=== PATIENT | female | born 1965 | race American Indian/Alaskan Native ===

== ENCOUNTER 2024-10-18 04:06 | Inpatient (IN) | payer BC ==
[~2024-10-18] VITALS: Ht 157.5 cm; Wt 66.2 kg
--- NOTE | 2024-10-18 04:49 | Physician Documentation ---
History of Present Illness ~ Chief Complaint: Knee Pain Stated Complaint: KNEE PAIN Time Seen by MD: 04:47 OK to notify your PCP?: Yes Primary Medical Doctor: [facility] Source: patient, RN/MD, EMS, RN notes reviewed, EMS notes reviewed, old records Mode of Arrival: EMS Exam Limitations: no limitations HPI THIS PATIENT WAS SEEN IN BED 1 This patient is a 59 y/o female who presents to ED with left knee pain after a fall. Per EMS report, patient fell off the ladder from her roof about 8 hours ago, and landed on both feet. She denies any head strike, LOC, and patient is not on blood thinners. Patient notes that she did take an Oxy at home prior to arrival that a friend gave her. She also states she has had a previous caclcanus fracture on her right foot which resulted from a similar mechanism of injury. Patient denies any other associated symptoms at this time. Patient denies any other alleviating or exacerbating factors. Medication Reconciliation Allergies: Coded Allergies: No Known Allergies (Unverified , 10/18/24) Past Medical History Past Medical History: No Pertinent History Past Surgical History: orthopedic surgeries Smoking Status: Never smoker Alcohol Use: None Drug Use: none Review of Systems All Other Systems at this time: Reviewed and Negative Musculoskeletal: Reports: pain Physical Exam Vital Signs: RN Vital Signs have been reviewed: Yes, Temperature: 98.2, Source: Oral, Heart Rate: 84, Respiratory Rate: 16, BP: 159/81, Pulse Oximetry: 98, Weight: 63.640 Physical Exam General: The patient is well developed, well nourished, nontoxic appearing and is in no acute distress. Skin: [place], warm and dry with no rashes. HEENT: Head was normocephalic and atraumatic. Eyes - pupils equal, round, reactive to light and accommodation. Extraocular movements were intact. Conjunctivae were nonicteric. Ears - bilateral tympanic membranes were normal. The mouth and oropharynx were clear with moist mucous membranes. There were no pharyngeal exudates or erythema. Neck: Supple and nontender. There was no jugular venous distention, lymphadenopathy, thyromegaly or masses. Chest: Clear to auscultation bilaterally without wheezes, rales or rhonchi. No accessory muscle use. No dullness to percussion. Heart: Rate regular and rhythmic. S1, S2. No murmurs. Palpation of the chest wall was normal. No rubs or thrills. Abdomen: Soft, nontender and nondistended. Positive bowel sounds. No guarding or rebound. No hepatosplenomegaly or palpable masses. Extremities: LLE: Patient's left knee is swollen, warm, and tender to touch. Limited ROM secondary to pain. Otherwise no cyanosis, clubbing or edema. The patient moves all other extremities. Pulses were equal and symmetric. Neurologic: Cranial nerves II-XII were intact. Sensation was intact to light touch throughout. Motor strength was 5/5 in all four extremities. Deep tendon reflexes were intact in both upper and lower extremities. Psychologic: The patient was oriented to person, place and time. The patient demonstrated appropriate judgement and insight. Procedures Splinting Hand-Made Type: orthoglass Splint: Long Leg Splint Pre-Proc Neuro Vasc Exam: normal Post-Proc Neuro Vasc Exam: normal Splint Placed By: sanding machine tender Tolerated Procedure Well?: yes, no complications Progress Progress Note 0510: Case presented to on-call orthopedist, Dr. Crawford for consultation. He is requesting 3D reconstruction CT of knee. Results/Orders Reviewed/noted all lab results: Yes Results/Orders Orders - MATTEO NIELSEN MD Knee Limited (Ap/Lat) (10/18/24 04:19) Urinalysis, Cult If Indicated (10/18/24 04:57) Chest,Single View (10/18/24 04:57) Echocardiogram (10/18/24 04:57) Dextrose 5%-1/2 Normal Saline (Dextrose (10/18/24 05:00) Monitor (10/18/24 04:57) Oxygen (10/18/24 04:57) Saline Lock (10/18/24 04:57) Electrocardiogram (10/18/24 04:57) Ortho Orders (10/18/24 05:00) Ct Recon Extremity (10/18/24 05:04) Type And Screen (10/18/24 05:42) Ct Lower Extremity (10/18/24 05:43) Pt Inr (10/18/24 06:25) PTT (10/18/24 06:25) Page Hospitalist (10/18/24 06:37) Liver Panel (10/18/24 06:37) Completed Orders - MATTEO NIELSEN MD Knee Limited (Ap/Lat) (10/18/24 04:19) Cbc/Diff (10/18/24 04:57) MG (10/18/24 04:57) Chest,Single View (10/18/24 04:57) Electrocardiogram (10/18/24 04:57) BMP (10/18/24 04:57) Hydromorphone 1 Mg/Ml/Pf (Dilaudid Inj.) (10/18/24 05:30) Hydromorphone 1 Mg/Ml/Pf (Dilaudid Inj.) (10/18/24 05:30) Ct Lower Extremity (10/18/24 05:43) Normal Saline 1000ml (Sodium Chloride 10 (10/18/24 06:40) Medications Received in ER Medications (Trade) Dose Ordered Sig/Pantera Route PRN Reason Start Time Stop Time Status Last Admin Dose Admin Dextrose/Sodium Chloride 1,000 ml @ 150 mls/hr Q6H40M ONCE IV 10/18/24 05:00 10/18/24 11:39 10/18/24 05:46 150 MLS/HR (Dilaudid inj.) 1 mg ONCE ONCE IV 10/18/24 05:30 10/18/24 05:31 DC 10/18/24 05:32 1 MG Vital Signs 10/18/24 10/18/24 10/18/24 04:09 04:44 05:32 Temp 98.2 Pulse 97 84 Resp 18 16 16 B/P (MAP) 136/76 159/81 (107) Pulse Ox 100 98 Laboratory Tests Test 10/18/24 05:25 White Blood Count 11.7 H Red Blood Count 4.07 L Hemoglobin 12.8 Hematocrit 37.7 Mean Corpuscular Volume 92.7 Mean Corpuscular Hemoglobin 31.5 H Mean Corpuscular Hemoglobin Concent 34.0 Red Cell Distribution Width 13.2 Platelet Count 208 Mean Platelet Volume 8.9 Neutrophils (%) (Auto) 91.6 H Lymphocytes (%) (Auto) 5.1 L Monocytes (%) (Auto) 3.3 Eosinophils (%) (Auto) 0 Basophils (%) (Auto) 0 Neutrophils # (Auto) 10.7 H Lymphocytes # (Auto) 0.6 L Monocytes # (Auto) 0.4 Eosinophils # (Auto) 0.0 Basophils # (Auto) 0.0 CBC Comment Coagulation Comments Sodium Level 136 Potassium Level 3.8 Chloride Level 102 Carbon Dioxide Level 26.9 Anion Gap 7 L Blood Urea Nitrogen 15 Creatinine 0.71 Estimated GFR/1.73 m2 84 BUN/Creatinine Ratio 21.1 H Glucose Level 130 H Calcium Level 9.3 Magnesium Level 2.0 Albumin 3.9 Chemistry Comments Re-Evaluation Re-Evaluation : Re-Evaluation: Improved Progress Patient was seen and examined. Patient was given reassurance. Patient was complaining of severe knee pain had impacted tibial plateau unstable fracture living alone requiring pain management and [place]. Preoperative workup was obtained. Patient has slight leukocytosis of 11.7 with 91 neutrophils. Thought to be more of a stress reaction she has no cough fevers chills dysuria frequency or any concerns for infection. She has a mechanical injury on a roof. Patient's chemistry was within normal limits. Case was discussed with the hosp italist at 7:10 a.m. who kindly agreed to admit the patient for further workup and care.Dr Quan. Ortho requested CT. Splint was placed on the patient to immobilize the knee. Pain meds were given. Her initial workup was reassuring echocardiogram is pending for the morning typed and screen as well for possible surgery. Patient received Dilaudid. Patient is doing much better at this time. She was placed on a mds rn as well. Continuous mds rn interpretation shows normal sinus rhythm heart rate 80s, no ectopy, normal, my interpretation. Pulse oximetry monitor interpretation shows normal oxygenation at 99% room air, normal, my interpretation. 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 Matteo Nielsen Measurements Intervals [place] Rate: 86 P: 67 [place]: 180 QRS: -2 QRSD: 88 T: 25 QT: 358 QTc: 429 Interpretive Statements Sinus rhythm Probable left atrial enlargement Low voltage, precordial leads RSR' in V1 or V2, right VCD or RVH Borderline T abnormalities, anterior leads Electronically Signed On 10-18-2024 5:24:[address] Matteo Nielsen Please click the below link to view image of tracing. EKG Date and Time:10/18/24 0506 Electronically Signed by: MATTEO NIELSEN MD Date and Time: 10/18/24523 NO PRIMARY CARE PROVIDER~ cc: ~ Bone/Soft Tissue X-Ray (Ext.) : Interpreted By: radiologist, both Additional Comment Patient: TATO GREEN Medical Record: [id number] [facility] : 1965, Age: 59 Sex: Female Location: ER Patient Status: REG ER Service Date/Time: 10/18/24/ 0419 Ordering Physician: MATTEO NIELSEN MD Exam: KNEE LIMITED (AP/LAT) CLINICAL INDICATION: FALL TECHNIQUE: DI KNEE LIMITED (AP/LAT) Comparison: None FINDINGS/IMPRESSION: : Severely depressed and displaced comminuted fracture of the lateral tibial plat eau. Moderate joint effusion consistent with hemarthrosis. Electronically Signed by:HAROLDO KENNEDY MD Date & Time: 06/29/25 0510 Dictated by: HAROLDO KENNEDY MD Dictation date and time: 10/18/24 0510 Primary Care Provider: NO PRIMARY CARE PROVIDER cc: MATTEO NIELSEN MD ~ IMAGES REVIEWED BY EDMD DR. NIELSEN WHO AGREES WITH ABOVE FINDINGS Medical Decision Making Additional info obtained from: old records Knee Diff Dx:Considerations: Include: Abrasion, Arthritis, Contusion, DJD, Fracture-femur, Fracture-fibula, Fracture-patella, Fracture-tibia, Meniscus injury, Neurovascular injury, Sprain, Sprain-MCL, Sprain-LCL, Sprain-ACL, Spra in-PCL, Other Departure Time of Disposition: 04:57 Disposition: 09 ADMITTED INPATIENT Admitted to Inpatient Unit: yes, to hospitalist Admission Level of Care: Ortho Impression: Primary Impression: Tibial plateau fracture, left Qualified Codes: S82.142A - Displaced bicondylar fracture of left tibia, initial encounter for closed fracture Condition: Guarded Referrals: NO PRIMARY CARE PROVIDER (PCP) Education Educated: Patient Educated regarding: diagnosis Signature Scribe Signature: no scribe. Attestation: The note accurately reflects work and decisions made by me.Matteo Nielsen MD 10/18/24 04:49 MATTEO NIELSEN MD Oct 18, 2024 04:49
--- NOTE | 2024-10-18 05:08 | ELECTROCARDIOGRAPH REPORT ---
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 Telma Musa Measurements Intervals [place] Rate: 86 P: 67 [place]: 180 QRS: -2 QRSD: 88 T: 25 QT: 358 QTc: 429 Interpretive Statements Sinus rhythm Probable left atrial enlargement Low voltage, precordial leads RSR' in V1 or V2, right VCD or RVH Borderline T abnormalities, anterior leads Electronically Signed On 10-18-2024 5:24:[address] Telma Musa Please click the below link to view image of tracing.
--- NOTE | 2024-10-18 05:12 | RADIOLOGY REPORT ---
CLINICAL INDICATION: FALL TECHNIQUE: DI KNEE LIMITED (AP/LAT) Comparison: None FINDINGS/IMPRESSION: : Severely depressed and displaced comminuted fracture of the lateral tibial plateau. Moderate joint effusion consistent with hemarthrosis.
[2024-10-18 05:48] LABS: MEAN PLATELET VOLUME 8.9 FL (7.4-10.4); RED CELL DISTRIBUTION WIDTH 13.2 % (11.5-14.5)
[2024-10-18 05:55] LABS: CREATININE 0.71 MG/DL (0.40-0.90); TOTAL CARBON DIOXIDE 26.9 MMOL/L (24-32); eCRCL 67 ML/MIN; eGFR 84 ML/MIN
--- NOTE | 2024-10-18 06:01 | RADIOLOGY REPORT ---
CHEST RADIOGRAPH Indication: CHEST PAIN Technique: Single frontal view of the chest was obtained COMPARISON: None FINDINGS: Lines and Tubes: None Lungs: Clear Pleura: No effusion. No pneumothorax. Cardiomediastinal contours: Unremarkable Bones: Unremarkable IMPRESSION: 1. No acute disease.
--- NOTE | 2024-10-18 07:03 | RADIOLOGY REPORT ---
INDICATION: fall COMPARISON: None TECHNIQUE: CT of the left knee was performed without contrast. Volume transverse images were obtained and reconstructed in multiple planes using bone and soft tissue algorithms. Radiation Dose Information: CT Dose: CTDI volume is 14.36 mGy. Dose-length product is 355.4 mGy*cm FINDINGS: Severely displaced and depressed comminuted lateral tibial plateau fracture involving primarily the p osterior portion of the plateau. The fracture margin extends to and involves the tibial spines. Lipohemarthrosis and Moderate soft tissue swelling and edema. IMPRESSION: 1. Severely displaced and depressed comminuted posterior lateral tibial plateau fracture with associa olga lidia lipohemarthrosis. 2. All CT scans at this medical facility are performed using dose modulation techniques as appropriat e to a performed exam including the following: Automated exposure control was utilized; adjustment of the MA and/or KV according to patient size; and use of iterative reconstruction technique.
[2024-10-18] MEDS ORDERED: magnesium sulf-water 4G/100mL 100 ML IV PRN (07:10)
[2024-10-18] MEDS ORDERED: magnesium Cl slow-release 64mg tablet PO PRN (07:10)
[2024-10-18] MEDS ORDERED: ondansetron/PF 4mg/2ml inj IV PRN (07:10)
[2024-10-18] MEDS ORDERED: potassium Cl 40MEQ/1/2NS 520ml 520 ML IV PRN (07:10)
[2024-10-18] MEDS ORDERED: potassium Cl 20 mEq SR tablet PO PRN ×2 (07:10)
[2024-10-18] MEDS ORDERED: magnesium sulf-water 2g/50mL 50 ML IV PRN (07:10)
[2024-10-18] MEDS: normal saline 1000ML IV soln IVB ONE (07:18)
[2024-10-18] MEDS: normal saline 1000ml 1,000 ML IV SCH (07:18)
[2024-10-18] MEDS: heparin, porcine 5000 units/ml vial SQ SCH (08:00)
[2024-10-18 08:18] LABS: APTT 25 SECONDS (22-32); INR 1.0 INR
[2024-10-18] MEDS ORDERED: NO HOME MEDS (09:55)
[2024-10-18 10:00] VITALS: BP 137/88; PULSE 97; RESP 14; TEMP 97.2; O2SAT 98
--- NOTE | 2024-10-18 12:30 | CONSULTATION REPORT ---
History of Present Illness Providers to CC ~ Reason for Admit\Admit Dx: left knee fracture Refering MD: Dr Prescott History of Present Illness The patient is a 59-year-old woman who fell off a ladder yesterday injuring her left leg. X-rays showed she had a lateral tibial plateau fracture. She was admitted for pain control and surgical intervention. Allergies: Coded Allergies: No Known Allergies (Unverified , 10/18/24) Home Medications Home Medications Active Reported No Home Medications (Home Med List) Each Physical Exam Last Vital Signs Recorded: Temperature: 98.2, Source: Oral, Heart Rate: 84, Respiratory Rate: 16, BP: 159/81, Pulse Oximetry: 98, Weight: 63.640 General Appearance: alert, no apparent distress EENT: PERRL/EOMI Neck: normal inspection Respiratory: lungs clear Extremities Moderate swelling about the left knee area the leg is in an Albino wrap and a posterior splint. She is moving her toes well Results Results/Orders Results/Orders X-rays and CT showed an intact medial plateau but a comminuted and significantly depressed lateral tibial plateau fracture about the knee Diagram Lab Result Diagram: 10/18/24 0525 10/18/24 0525 Assessment/Plan Problems/Diagnosis: (1) Tibial plateau fracture, left Additional Plan The splint that is currently on the leg is inadequate tonight ordered that to be replaced by a knee immobilizer. We will continue swelling control and a significant ice use. Planned surgery for tomorrow unless his swelling is too significant. I discussed with the patient the nature of her injury the need for surgery. I also discussed with the that it is a very bad injury and she is pretty going to have long-term effects such as posttraumatic arthritis later in life. Our attempt at this time be due restore the lateral articular surface and secured with the lateral plate. She understands and agrees to proceed. Surgery likely done with the next 24 hours. Problem Qualifiers (1) Tibial plateau fracture, left: Qualified Codes: S82.142A - Displaced bicondylar fracture of left tibia, initial encounter for closed fracture CANDIS BROWN Jr., MD Oct 18, 2024 12:30
[2024-10-18] MEDS: HYDROmorphone inj. 0.5 MG/0.5 ML DISP.SYRIN IV PRN (14:21)
[2024-10-18 18:00] VITALS: BP 169/93; PULSE 60; RESP 19; TEMP 97.3; O2SAT 100
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
--- NOTE | 2024-10-18 19:09 | CARDIOLOGY REPORT ---
APPROVED REPORT EXAM: Comprehensive 2D, Doppler, and color-flow Echocardiogram. 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 158.6 cm/s AoV VTI 26.9 cm AO Peak GR. 10.1 mmHg AO Mean GR. 5 mmHg LVOT VTI 19.03 cm LVOT Peak Narinder. 138.3 cm/s KP(VTI)/BSA 2.04 cm2/m2 KP (VTI) 2.04 cm2 Mitral Valve MV Peak Gr. 4 mmHg MV PHT 56 ms MVA (PHT) 3.93 cm2 MV VMax99.1 cm/s Tricuspid Valve TR P. Velocity 237 cm/s RAP ESTIMATE 10 mmHg TR Peak Gr. 22 mmHg RVSP 32 mmHg LEFT VENTRICLE Normal LV size and wall thickness. Overall systolic function is normal. LVEF is 65%. RIGHT VENTRICLE RV is normal size and function. Elevated right heart pressures as noted above. ATRIA The left atrium size is normal. AORTIC VALVE Trileaflet AV appears mildly sclerotic without stenosis. No insufficiency. MITRAL VALVE Mild MV annular calcification without stenosis. Trace regurgitation. TRICUSPID VALVE TV appears structurally normal with trace regurgitation. PULMONIC VALVE Normal pericardium. No effusion. GREAT VESSELS The aortic root is normal in size. IVC is not well visualized. PERICARDIUM Normal pericardium. No effusion. Other Information Study Quality: Adequate, but patient uncooperative
[2024-10-18 20:00] VITALS: RESP 19; O2SAT 100
[2024-10-18 21:32] LABS: LEUKOCYTE ESTERASE ,URINE NEGATIVE (Neg); NITRITES, URINE NEGATIVE (Neg); OCCULT BLOOD,URINE LARGE (Neg)
[2024-10-18 21:36] LABS: UA COLLECTION TYPE CLN CATCH MIDSTREAM
[2024-10-18 21:38] LABS: SQUAMOUS EPITHELIAL CELL,UR FEW /LPF (FEW)
[2024-10-18 21:48] LABS: URINE AMPHETAMINE SCREEN NEGATIVE (Neg); URINE BARBITUATE SCREEN NEGATIVE (Neg); URINE BENZODIAZEPINES SCREEN NEGATIVE (Neg); URINE CANNABINOID SCREEN NEGATIVE (Neg); URINE COCAINE SCREEN NEGATIVE (Neg); URINE METHADONE SCREEN NEGATIVE (Neg); URINE OPIATE SCREEN POSITIVE (Neg); URINE PHENCYCLIDINE SCREEN NEGATIVE (Neg)
[2024-10-18 22:00] VITALS: BP 133/73; PULSE 82; RESP 14; TEMP 97.1; O2SAT 92
[2024-10-19] VITALS (25 sets, daily range): BP systolic 96–169; BP diastolic 46–93; PULSE 60–114; RESP 10–20; TEMP 97.5–98.4; O2SAT 93–100
[2024-10-19] MEDS: HYDROcodone/acetaminophen 10/325mg tab PO PRN (04:38)
[2024-10-19 05:30] LABS: MEAN PLATELET VOLUME 9.4 FL (7.4-10.4); RED CELL DISTRIBUTION WIDTH 13.2 % (11.5-14.5)
[2024-10-19 06:10] LABS: CREATININE 0.47 MG/DL (0.40-0.90); TOTAL CARBON DIOXIDE 26.4 MMOL/L (24-32); eCRCL 101 ML/MIN; eGFR > 90 ML/MIN
[2024-10-19] MEDS ORDERED: BUPIVAcaine/PF 2.5 mg/ml (0.25%) 30ml vial ONE (12:56)
[2024-10-19] MEDS ORDERED: ondansetron/PF 4mg/2ml inj IV PRN (13:45)
[2024-10-19] MEDS ORDERED: morphine 4 MG/ML inj SYRINge IV PRN (13:45)
[2024-10-19] MEDS ORDERED: enalaprilat 1.25mg/ml 2ml vial IV PRN (13:45)
[2024-10-19] MEDS ORDERED: meperidine/PF 25mg/ml syringe IV PRN ×3 (13:45)
[2024-10-19] MEDS ORDERED: labetalol 20mg/4ml (5mg/ml) syringe IV PRN (13:45)
--- NOTE | 2024-10-19 13:57 | PROGRESS NOTE- Residence ---
Progress Note - Resident Providers to CC Resident Creating Document: RHEA MADISON RES ~ Antibiotic Timeout Antibiotic Ordered?: No Subjective Patient seen and examined at bedside. No acute overnight events noted. Resting in bed, denies pain, states she cannot move her leg. Leg wrapped in knee immobilizer. Scheduled to be taken for surgery this afternoon likely at 2 pm. Objective Vital Signs Date Time Temp Pulse Resp B/P (MAP) Pulse Ox O2 Delivery O2 Flow Rate FiO2 10/19/24 12:55 78 16 98 10/19/24 11:05 97.8 130/67 (88) 10/18/24 22:00 Room Air Result Diagram: 10/19/2442610/19/24426 General: Awake and Alert, no acute distress. HEENT: Conjunctiva pink, Sclera clear, Mucus Membranes moist. Neck: Supple without masses and tenderness. Resp: Unlabored. Equal breath sounds bilaterally. Heart: Regular rhythm, normal S1 and S2, no rub, murmur or gallop. Abdomen: Soft and non tender no organomegaly. Normal bowel sounds x4 quadrant normoactive. No guarding or rigidity. Extremities: Left lower extremity knee immobilizer in place. Left lower extremity edema present. No cyanosis or clubbing. CREW LEADER GLUING: No gross motor or sensory abnormalities. Skin: Warm and Dry. Coagulation Studies Laboratory Tests Test 10/18/24 07:56 Prothrombin Time 10.6 SECONDS (9.0-12.0) INR International Normalized Ratio 1.0 INR Activated Partial Thromboplast Time 25 SECONDS (22-32) Coagulation Comments Assessment Assessment 59 year old female presented to the ED with left knee pain after a mechanical fall. Plan Plan Mechanical fall Left sided Severely displaced and depressed comminuted posterior lateral tibial plateau fracture Scheduled for surgery with Dr. Crawford this afternoon Vitals stable Fluid resuscitation NS at 70 mL/hour Pain medications p.r.n. We will follow up post surgery PT eval and treat Code Status: Full code DVT prophylaxis: Heparin Analgesia/sedation: Morphine/[place] Line/tube: PIV GI prophylaxis: None Nutrition: NPO until surgery, Prognosis: Guarded Disposition: Continue medical management. Rhea Madison MD. IM Resident PGY-2 Date of Service: Oct 19, 2024 Billing Provider: NANCY SANCHEZ MD Common Visit Codes: [id number] INP/OBS CARE(HIGH) RHEA MADISON, RES Oct 19, 2024 13:57 NANCY SANCHEZ MD Oct 19, 2024 16:52
[2024-10-19] MEDS ORDERED: midazolam 1 mg/ML 2ml injection ONE (14:03)
[2024-10-19] MEDS ORDERED: fentaNYL /PF 50mcg/ml 5ml ampule ONE (14:04)
[2024-10-19] MEDS ORDERED: propofol inj 20 ML IV ONE ×2 (14:07→14:09)
[2024-10-19] MEDS ORDERED: dexamethasone sod phosphate 4mg/ml inj. ONE (14:08)
[2024-10-19] MEDS ORDERED: ROPIVAcaine 0.5% (5mg/ml) 30ml vial ONE (14:08)
[2024-10-19] MEDS ORDERED: LIDOcaine 2% (20mg/ml) 5ml vial ONE (14:09)
[2024-10-19] MEDS: ringers solution, lacted 1,000 ML IV SCH (14:16)
[2024-10-19] MEDS ORDERED: BUPIVAcaine/PF 7.5mg/ml (0.75%) 10ml vial ONE (14:31)
--- NOTE | 2024-10-19 15:00 | ANESTHESIA RECORDS ---
Nerve Block Providers to ~ Diagnosis: Nerve Block requested by: CANDIS BROWN Jr., MD Neuraxial/Peripheral Nerve Block requested for Post-operative analgesia by Jose marshall DIAGNOSIS: Post-operative pain. (Body Area) Shoulder: [ ] Arm: [ ] Hand: [ ] Hip: [ ] Knee: [ Left ] Ankle: [ ] Foot: [ ] Leg: [ Left ] Abdomen: [ ] Other: [ ] Post-operative pain expected to be/is inadequately managed by oral or IV medicines. Regional anesthetic expected to facilitate rehabilitation and/or discharge from facility. Other: [ ] Time out Done?: Yes Time of Time out: 14:15 Procedure Details: PROCEDURE DETAILS: Risks, benefits and alternatives explained Informed consent obtained, and patient wishes to proceed Conscious sedation with indicated monitors Patient positioned, pertinent anatomy defined, sterile technique used Needle used: [ ] 3 1/8 inch Stimuplex Ultra 22ga [x ] 4 inch Stimuplex Ultra 20ga [ ] 6 inch Stimuplex Ultra 20ga [ ] 6 inch, Quikbloc over the needle catheter set 20ga [ ] 4 inch Quikbloc over the needle catheter set 20ga [ ]Other: [ ] Loss of twitch @ [ 0.5 ]mA [x ] Single Injection [ ] Catheter Ultrasound Guidance Used: [x ] Yes [ ] No Attempts:[ once ] Medicines injected: [ ]Clonidine Amt:[ ] [ x ]Dexamethasone Amt:[____5 mgs ] [ x ]Ropivacaine Amt:[___0.5% 30 cc ] [ x ]Bupivacaine Amt:[ 0.375% 16 cc ] [ ]Lidocaine Amt:[ ] [ ]Exparel 1.33%:[ ] [ ]Epinephrine Amt[ ] [ ]Other: [ ] Intermittent aspiration during local anesthetic administration No symptoms of intraneural or intravenous injection Patient tolerated procedure well Comments Left Politeal fossa Block Pt in Supine position with Left Leg flexed at 90 Degrees. Lateral approach. Ultrasound probe placed back of thigh 2 inches above the knee joint. Easy visualization of the Sciatic nerve. 1% xylocaine local anesthetic. Easy visualization of Spreading of local anesthetic anterior and posterior to the Sciatic nerve sub paraneurally inside sciatic nerve sheath. Meaningful conversation t throughout. No Pain or discomfort during injection. Lt Adductor Canal blk Procedure done before surgery under General anesthesia. Pt supine with Lt leg rotated to Lt slightly. Easy visualization of Adductor Canal with ultra sound anterolateral to Femoral artery at the junction of upper and middle third of th igh. Able to see the tip of the needle and injected local anesthetic with the ultrasound. ASHTYN CISSE MD Oct 19, 2024 15:00
--- NOTE | 2024-10-19 15:46 | OPERATIVE REPORT ---
Operative Report Providers to ~ Date of Procedure: Oct 19, 2024 Pre-Operative Diagnosis: Left knee lateral tibial plateau fracture Post-Operative Diagnosis SAME as PRE-Op Procedure Performed Open reduction internal fixation of left knee lateral tibial plateau fracture Surgeon: Andrew Crawford MD Cert Occupational Therapy Asst None Anesthesiologist: Edson Evans Type of Anesthesia: General Findings: Comminuted intra-articular depressed fracture of the lateral tibial plateau Complications None Prosthetics\Implants used: Bone bridge proximal tibia plate four hole, left with 3.5 mm screws Estimated Blood Loss: 20 mL Specimen Removed: None Description of Procedure: The patient is a 59-year-old woman who fell off a ladder injuring her left knee. She had a depressed articular comminuted fracture of the lateral tibial plateau. Surgery is indicated to stabilize fracture. Risks and benefits were discussed with the patient. The main risks of this type of an injury and procedure is postoperative the posttraumatic arthritis. More current risks are infection, bleeding, nerve or vessel damage, compartment syndrome, hardware pain. She agreed to proceed. He is given an anesthetic in the operating room including a femoral block. The leg was then prepped and draped in usual manner with a tourniquet on the thigh. A curved incision was made over the anterolateral tibia area accessing the tibia and the tibial plateau. Incision was made beneath the lateral meniscus in order to drain the hematoma. This was thoroughly irrigated. A elevator was placed in the fracture site in the subchondral area under fluoro guidance to elevate the depressed central fragments of the lateral plateau. Once this is done it was packed with a combination of bone chips and bone putty. The plate was then affixed laterally and 1st in the distal aspect and then under fluoro guidance the remaining screws were placed proximally including three right beneath the articular surface. This restored the articular surface and good stability to the knee. Thorough irrigation was done throughout the case. Final fluoro images were obtained and the incision was then closed in layers. A sterile dressing was applied along with a hinged knee brace. The tourniquet was released the leg perfused well and she was taken to the recovery room in stable condition ANDREW CRAWFORD Jr., MD Oct 19, 2024 15:46
[2024-10-20 04:35] LABS: MEAN PLATELET VOLUME 9.1 FL (7.4-10.4); RED CELL DISTRIBUTION WIDTH 12.9 % (11.5-14.5)
[2024-10-20 05:00] VITALS: BP 122/59; PULSE 88; RESP 14; TEMP 99; O2SAT 95
[2024-10-20 05:06] LABS: CREATININE 0.56 MG/DL (0.40-0.90); TOTAL CARBON DIOXIDE 28.3 MMOL/L (24-32); eCRCL 84 ML/MIN; eGFR > 90 ML/MIN
[2024-10-20 08:00] VITALS: RESP 16; O2SAT 98
[2024-10-20 10:00] VITALS: BP 128/62; PULSE 101; RESP 16; TEMP 97.2; O2SAT 98
[2024-10-20] MEDS: HYDROmorphone/PF 0.2 MG/ML SYRINGE IV PRN (10:17)
--- NOTE | 2024-10-20 13:56 | RADIOLOGY REPORT ---
Procedure: DI TIB/FIB 2 VWS 10/19/2024 02:37 PM TECHNIQUE: DI TIB/FIB 2 VWS Indication: ORIF LEFT TIBIAL PLATEAU - FLUORO TIME .5 MIN Comparison: None FINDINGS: Intraoperative radiographs of the tibial were obtained for intraoperative localization. There is a p late and screw overlying the proximal tibia. Fluoroscopy time 32.7 seconds. Radiation dose 3.13 mGy. IMPRESSION: 1. Findings as above.
--- NOTE | 2024-10-20 15:01 | PROGRESS NOTE- Residence ---
Progress Note - Resident Providers to CC Resident Creating Document: SABINO BETH RES ~ Antibiotic Timeout Antibiotic Ordered?: No Subjective Patient seen and examined at bedside. Patient states pain controlled with medications, complains of pain in left hip from long-time exacerbated after the fall Leg wrapped in knee immobilizer. Patient did not have a bowel movement since admission, denies nausea or vomiting, accepting regular diet. No other complaints. Objective Vital Signs Date Time Temp Pulse Resp B/P (MAP) Pulse Ox O2 Delivery O2 Flow Rate FiO2 10/20/24 12:50 17 10/20/24 10:00 97.2 101 128/62 (84) 98 Room Air 10/19/24 17:30 2.0 Result Diagram: 10/20/24 0418 10/20/24 0418 Coagulation Studies Laboratory Tests Test 10/18/24 07:56 Prothrombin Time 10.6 SECONDS (9.0-12.0) INR International Normalized Ratio 1.0 INR Activated Partial Thromboplast Time 25 SECONDS (22-32) Coagulation Comments Laboratory Tests Test 10/18/24 21:10 10/19/24 04:27 10/19/24 12:32 10/20/24 04:18 Urine Specimen Description Cln catch midstream Urine Color Yellow Urine Clarity Clear Urine pH 6.5 Urine Specific Bishop 1.010 Urine Protein Negative mg/dl Urine Glucose (UA) Negative mg/dl Urine Ketones 15 mg/dl Urine Occult Blood Large Urine Nitrite Negative Urine Bilirubin Negative Urine Urobilinogen 0.2 E.U/dL Urine Leukocyte Esterase Negative Urine RBC 50-100 /HPF Urine WBC 0-4 /HPF Urine Squamous Epithelial Cells Few /LPF Urine Bacteria Few /HPF Urine Culture Indicated Not ind Volume Urine Centrifuged 10 ml Urine Comment Urine Opiates Screen Positive Urine Methadone Screen Negative Urine Fentanyl Screen Negative Urine Barbiturates Screen Negative Urine Phencyclidine Screen Negative Urine Amphetamines Screen Negative Urine Benzodiazepines Screen Negative Urine Cocaine Screen Negative Urine Cannabinoids Screen Negative Drug Screen Comment White Blood Count 8.8 X10'3 12.5 X10'3 Red Blood Count 3.88 X10'6 3.43 X10'6 Hemoglobin 12.2 g/dl 10.7 g/dl Hematocrit 36.0 % 31.9 % Mean Corpuscular Volume 92.7 FL 92.9 FL Mean Corpuscular Hemoglobin 31.4 PG 31.3 PG Mean Corpuscular Hemoglobin Concent 33.8 g/dL 33.7 g/dL Red Cell Distribution Width 13.2 % 12.9 % Platelet Count 202 X10'3 180 X10'3 Mean Platelet Volume 9.4 FL 9.1 FL Neutrophils (%) (Auto) 77.0 % 90.8 % Lymphocytes (%) (Auto) 16.6 % 3.7 % Monocytes (%) (Auto) 6.2 % 5.4 % Eosinophils (%) (Auto) 0.1 % 0 % Basophils (%) (Auto) 0.1 % 0.1 % Neutrophils # (Auto) 6.8 X10'3 11.3 X10'3 Lymphocytes # (Auto) 1.5 X10'3 0.5 X10'3 Monocytes # (Auto) 0.5 X10'3 0.7 X10'3 Eosinophils # (Auto) 0.0 X10'3 0.0 X10'3 Basophils # (Auto) 0.0 X10'3 0.0 X10'3 CBC Comment Sodium Level 140 MMOL/L 144 MMOL/L Potassium Level 3.7 MMOL/L 3.8 MMOL/L Chloride Level 105 MMOL/L 109 MMOL/L Carbon Dioxide Level 26.4 MMOL/L 28.3 MMOL/L Anion Gap 9 7 Blood Urea Nitrogen 7 MG/DL 10 MG/DL Creatinine 0.47 MG/DL 0.56 MG/DL Estimated GFR/1.73 m2 > 90 ML/MIN > 90 ML/MIN BUN/Creatinine Ratio 14.9 17.9 Glucose Level 100 MG/DL 128 MG/DL Calcium Level 8.9 MG/DL 8.9 MG/DL Total Bilirubin 0.6 MG/DL 0.3 MG/DL Aspartate Amino Transf (AST/SGOT) 38 U/L 40 U/L Alanine Aminotransferase (ALT/SGPT) 36 U/L 40 U/L Alkaline Phosphatase 107 IU/L 99 IU/L Total Protein 6.8 G/DL 6.1 G/DL Albumin 3.2 G/DL 2.7 G/DL Globulin 3.6 G/DL 3.4 G/DL Albumin/Globulin Ratio 0.9 0.8 Chemistry Comments Glucometer 86 mg/dl Procalcitonin < 0.05 NG/ML Test 10/20/24 13:20 Erythrocyte Sedimentation Rate 42 MM/HR Vital Signs Date Time Temp Pulse Resp B/P (MAP) Pulse Ox O2 Delivery O2 Flow Rate FiO2 10/20/24 12:50 17 10/20/24 10:00 97.2 101 128/62 (84) 98 Room Air 10/19/24 17:30 2.0 Assessment Assessment 59 year old female presented to the ED with left knee pain after a mechanical fall. Plan Plan Mechanical fall Left sided Severely displaced and depressed comminuted posterior lateral tibial plateau fracture Vitals stable Fluid resuscitation NS at 70 mL/hour Pain medications p.r.n. We will follow up post surgery PT eval and treat 10/20/2024: Follow up after open reduction internal fixation of left knee lateral tibial plateau fracture Ordered left hip and pelvis x-ray due to patient's complaints Dr. Crawford have instructed the patient at touchdown weight-bearing and would like to see her in his office after 10-15 days Pain medications p.r.n. Continue physical therapy, discharge cannot be done until patient obtains help at home and demonstrates mastery of stairs. Constipation We will start patient on MiraLax Monitor for signs of obstruction Maintain hydration at 70 mL/hr Maintain ambulation with physical therapy Code Status: Full code DVT prophylaxis: Heparin Analgesia/sedation: Morphine/Jackson Line/tube: PIV GI prophylaxis: None Nutrition: Regular diet Prognosis: Guarded Disposition: Home after be cleared from PT Sabino Beth MD. IM Resident PGY-1 Date of Service: Oct 20, 2024 Billing Provider: NANCY SANCHEZ MD Common Visit Codes: [id number] INP/OBS CARE(HIGH) SABINO BETH, ROBERTO Oct 20, 2024 15:01 NANCY SANCHEZ MD Oct 20, 2024 17:59
[2024-10-20 18:00] VITALS: BP 126/70; PULSE 64; RESP 18; TEMP 98.6; O2SAT 98
[2024-10-20] MEDS: polyethylene glycol 3350 17gm powd pack PO SCH (19:16)
[2024-10-20 20:00] VITALS: RESP 16; O2SAT 96
[2024-10-20 22:00] VITALS: BP 145/68; PULSE 89; RESP 16; TEMP 97.9; O2SAT 95
--- NOTE | 2024-10-21 02:44 | RADIOLOGY REPORT ---
CLINICAL INDICATION: left hip pain TECHNIQUE: DI HIP UNILATERAL 2 VIEWS Comparison: None FINDINGS/IMPRESSION: : There is no evidence of acute fracture or dislocation. Soft tissues are unremarkable.
[2024-10-21 05:00] LABS: MEAN PLATELET VOLUME 8.9 FL (7.4-10.4); RED CELL DISTRIBUTION WIDTH 13.2 % (11.5-14.5)
[2024-10-21 05:16] LABS: CREATININE 0.60 MG/DL (0.40-0.90); TOTAL CARBON DIOXIDE 32.3 MMOL/L (24-32); eCRCL 79 ML/MIN; eGFR > 90 ML/MIN
[2024-10-21 06:00] VITALS: BP 135/72; PULSE 90; RESP 14; TEMP 97.9; O2SAT 97
[2024-10-21 08:00] VITALS: RESP 16; O2SAT 95
[2024-10-21 10:00] VITALS: BP 117/57; PULSE 95; RESP 16; TEMP 97.5; O2SAT 98
[2024-10-21] MEDS ORDERED: ACET-1008 PO (15:26)
[2024-10-21] MEDS ORDERED: IBUP-1985 PO (15:37)
[2024-10-21 16:25] VITALS: RESP 15
[2024-10-21] MEDS: HYDROcodone/acetaminophen 5mg/325mg tablet PO PRN (16:25)
--- NOTE | 2024-10-21 17:22 | DISCHARGE SUMMARY-Residence ---
Discharge Summary Providers to CC Resident Creating Document: JEZ BETH RES ~ Discharge Summary Admission Diagnosis: Left knee lateral tibial plateau fracture Hospital Course DATE OF ADMISSION: 10/18/2024 DATE OF DISCHARGE: 10/21/2024 Laboratory results Hemoglobin 10.4 WBC 10.0 Sodium 142 Potassium 3.8 BUN 8 Creatinine 0.6 Image results Knee x-ray on October 18: Severely depressed and displaced comminuted fracture of the lateral tibial plateau. Moderate joint effusion consistent with hemarthros is. Echocardiogram on October 18: : Normal LV size and wall thickness. Overall systolic function is normal. LVEF is 65%. RV is normal size and function. Elevated right heart pressures Lower extremity CT on October 18: Severely displaced and depressed comminuted posterior lateral tibial plateau fracture with associated lipohemarthrosis. Tibia x-ray on October 19: Intraoperative radiographs of the tibial were obtained for intraoperative localization. There is a plate and screw overlying the proximal tibia. Hip x-ray on 20 October: There is no evidence of acute fracture or dislocation. Soft tissues are unremarkable. Discharge Diagnosis\Comment: Displaced tibial plateau fracture Open reduction internal fixation of left knee lateral tibial plateau fracture Operations\Procedures: Open reduction internal fixation of left knee lateral tibial plateau fracture Consultants: Dr. Crawford Complications: None Condition on DC: Stable New Medications: Ibuprofen (Ibuprofen) 600 Mg Tablet 1 TAB PO Q12H for pain for 5 Days, #10 TAB 0 Refills with food Continued Medications: Acetaminophen (Tylenol) 325 Mg Tablet 650 MG PO Q6H PRN PAIN PRN for pain for 7 Days, #42 TAB Discontinued Medications: Acetaminophen (Tylenol) 325 Mg Tablet 650 MG PO Q6H PRN PAIN PRN for pain for 7 Days, #42 TAB Home Med List (No Home Medications) Each Discharge Summary: This patient is a 59 year old female who presented to ED with left knee pain after falling her roof and landing on both feet. Lower extremity CT showed left side severely displaced and depressed comminuted posterior lateral tibial plateau fracture for which the patient underwent open reduction internal fixation of left knee lateral tibial plateau fracture on October 19, without complication. Patient lives alone and was initially recommended rehab, but she refused and was adamant of being discharged home. Patient arranged home assistance, was evaluated today with physical therapy that cleared the patient for being discharged at home with assist. Patient also complains of chronic left hip pain, hip x-ray was done and did not show any significant findings. Patient is stable to be discharged and following up as outpatient. The patient had the following physical exam at discharge: General: Awake and Alert, no acute distress. HEENT: Conjunctiva pink, Sclera clear, Mucus Membranes moist. Neck: Supple without masses and tenderness. Resp: Unlabored. Equal breath sounds bilaterally. Heart: Regular rhythm, normal S1 and S2, no rub, murmur or gallop. Abdomen: Soft and non tender no organomegaly. Normal bowel sounds x4 quadrant normoactive. No guarding or rigidity. Extremities: Left lower extremity knee immobilizer in place. Left lower extr emity edema present. No cyanosis or clubbing. INFORMATION SECURITY ARCHITECT: No gross motor or sensory abnormalities. Skin: Warm and Dry. The patient was discharged with the following instructions: Follow-up with PCP in 2 weeks Follow-up with Dr. Crawford in 2 weeks Touchdown weight-bearing as instructed Tylenol for pain Continue physical therapy Come back to the emergency department in case of purulent discharge, severe pain or any red flags. *Problems/Diagnosis: (1) Tibial plateau fracture, left Status: Acute Total Time Spent on D/C: Up to 30 Minutes Counseling Services Smoking & Tobacco Cessation: N/A Date of Service: Oct 21, 2024 Billing Provider: NANCY SANCHEZ MD Common Visit Codes: [id number] DISCH DAY >30min Problem Qualifiers (1) Tibial plateau fracture, left: Encounter type: initial encounter Fracture type: closed Qualified Codes: S82.142A - Displaced bicondylar fracture of left tibia, initial encounter for closed fracture JEZ BETH, RES Oct 21, 2024 17:01 NANCY SANCHEZ MD Oct 21, 2024 17:46
[2024-10-21] MEDS ORDERED: HYDR-3965 PO (17:56)
== END 2024-10-21 16:50 | disposition home or self-care (01) | DRG 494 ==
LOC: ER 04:06 → ED HOLD 07:15 → SUR 3N 09:31
PROVIDERS: ADMIT Internal Medicine; ATTEND Internal Medicine
PROC: 2W3MX1Z Immobilization of Left Lower Extremity using Splint (ICD-10-PCS; 2024-10-18)
PROC: 3E0T3BZ Introduction of Anesthetic Agent into Peripheral Nerves and Plexi, Percutaneous Approach (ICD-10-PCS; 2024-10-19)
PROC: 3E0T33Z Introduction of Anti-inflammatory into Peripheral Nerves and Plexi, Percutaneous Approach (ICD-10-PCS; 2024-10-19)
PROC: 0QHH04Z Insertion of Internal Fixation Device into Left Tibia, Open Approach (ICD-10-PCS; principal; 2024-10-19 14:00)
DX: S82.142A Displaced bicondylar fracture of left tibia, initial encounter for closed fracture (principal); K59.00 Constipation, unspecified; W11.XXXA Fall on and from ladder, initial encounter; Z60.2 Problems related to living alone; Y93.89 Activity, other specified; Y92.89 Other specified places as the place of occurrence of the external cause; Y99.8 Other external cause status
CPT/HCPCS: 29505; 36415; 71045; 73502; 73560; 73590; 73700; 76000; 80048; 80053; 80076; 80305; 81001; 82948; 83735; 84145; 85025; 85610; 85651; 85730; 86885; 86900; 86901; 87081; 93005; 93306; 97110; 97116; 97162; 97530; 99285; A4615; A4618; A6222; A6258; A6446; A6449; A7000; C1713; G0378; J0690; J1100; J1171; J1644; J2003; J2250; J2405; J2704; J2795; J3010; J3490; J7030; J7042; J7120